=== PATIENT | male | born 1960 | race Caucasian/White ===

== ENCOUNTER 2019-02-03 18:43 | Emergency (ER) | payer OTHER ==
--- NOTE | 2019-02-03 19:18 | ED ---
General Adult HPI - General Source: patient, RN notes reviewed, old records reviewed Mode of arrival: ambulatory Limitations: no limitations <Serafin Soliz - Last Filed: 02/03/19 20:36> <Kathy Abrams - Last Filed: 02/06/19 02:56> - General Chief complaint: Extremity Problem,Nontraumatic Stated complaint: Poss Blood Clot Time Seen by Provider: 02/03/19 18:54 - History of Present Illness Initial comments: 58-year-old male patient past medical history of varicose veins and lower extremities bilaterally presents ED with chief complaint of pain in right lateral calf. Patient reports that he has a varicose vein which has been present in this region for years. Patient force that he did have one of his large veins stented in order to treat the varicosities approximately 12/27. Patient is on Plavix. However approximately 2 weeks ago patient had a long travel lying from [place] since then he feels as if the area has become hard and painful. Patient also reports some warmth in his right lower extremity. Patient denies any chest pain or shortness of breath. Patient denies any other complaints at this time. Systemic: Pt denies fatigue, fever/chills, rash. Pt denies weakness, night sweats, weight loss. Neuro: Pt denies headache, visual disturbances, syncope or pre-syncope. HEENT: Pt denies ocular discharge or irritation, otalgia, rhinorrhea, pharyngitis or notable lymphadenopathy. Cardiopulmonary: Pt denies chest pain, SOB, heart palpitations, dyspnea on exertion. Abdominal/GI: Pt denies abdominal pain, n/v/d. : Pt denies dysuria, burning w/ urination, frequency/urgency. Denies new onset urinary or bowel incontinence. MSK: Pt denies myalgia, loss of strength or function in extremities. Neuro: Pt denies new onset weakness, paresthesias. (Serafin Soliz) - Related Data Home Medications Medication Instructions Recorded Confirmed No Known Home Medications 11/07/13 11/07/13 Allergies Allergy/AdvReac Type Severity Reaction Status Date / Time No Known Allergies Allergy Verified 02/03/19 18:51 Review of Systems ROS Other: All systems not noted in ROS Statement are negative. <Serafin Soliz - Last Filed: 02/03/19 20:36> ROS Other: All systems not noted in ROS Statement are negative. <Kathy Abrams - Last Filed: 02/06/19 02:56> ROS Statement: Those systems with pertinent positive or pertinent negative responses have been documented in the HPI. Past Medical History Past Medical History: No Reported History History of Any Multi-Drug Resistant Organisms: None Reported Past Surgical History: Appendectomy Past Anesthesia/Blood Transfusion Reactions: No Reported Reaction Smoking Status: Never smoker <Serafin Soliz - Last Filed: 02/03/19 20:36> General Exam Limitations: no limitations <Serafin Soliz - Last Filed: 02/03/19 20:36> - General Exam Comments Initial Comments: Constitutional: NAD, AOX3, Pt has pleasant affect. HEENT: NC/AT, trachea midline, neck supple, no lymphadenopathy. Posterior pharynx non erythematous, without exudates. External ears appear normal, without discharge. Mucous membranes moist. Eyes PERRLA, EOM intact. There is no scleral icterus. No pallor noted. Cardiopulmonary: RRR, no murmurs, rubs or gallops, no JVD noted. Lungs CTAB in anterior and posterior gonzalez. No peripheral edema. Abdominal exam: Abdomen soft and non-distended. Abdomen non-tender to palpation in all 4 quadrants. Bowel sounds active in LLQ. No hepatosplenomegaly. No ecchymosis Neuro: CN II-XII grossly intact. No nuchal rigidity. No raccon eyes, no kathleen sign, no hemotympanum. No cervical spinal tenderness. MSK: Varicose vein on right lower extremity medial aspect of calf mildly hard palpation, mildly tender to palpation, mild amount of warmth, no erythema or skin changes. Distal pulses intact and equal bilaterally. No posterior calf tenderness bilaterally, homans sign negative bilaterally. Posterior tibialis and radial pulse +2 bilaterally. Sensation intact in upper and lower extremities. Full active ROM in upper and lower extremities, 5/5 stregnth. (Serafin Soliz) Course Vital Signs 02/03/19 02/03/19 18:48 20:45 Temperature 98.3 F 98.2 F Pulse Rate 86 78 Respiratory 16 18 Rate Blood Pressure 136/90 130/88 O2 Sat by Pulse 98 97 Oximetry Medical Decision Making <Serafin Soliz - Last Filed: 02/03/19 20:36> <Kathy Abrams - Last Filed: 02/06/19 02:56> - Medical Decision Making 58-year-old male patient presents to ED with chief complaint of pain in her grossly in right lower extremity. Patient vital signs stable, afebrile. Physical exam displayed: aricose vein on right lower extremity medial aspect of calf mildly hard palpation, mildly tender to palpation, mild amount of warmth, no erythema or skin changes. Distal pulses intact and equal bilaterally. No posterior calf tenderness bilaterally, homans sign negative bilaterally. Bill Collector ior tibialis and radial pulse +2 bilaterally. Sensation intact in upper and lower extremities. Full active ROM in upper and lower extremities, 5/5 stregnth. Ultrasound of right lower extremity displayed superficial venous thrombosis at area of concern. No DVT. Patient will be discharged, will use warm compresses, nonsteroidal anti-inflammatories. He'll follow up with primary care provider in persist abscess initiated. Case discussed with Dr. Abrams. (Serafin Soliz) I was available for consultation in the emergency department. The history and physical exam were done by the midlevel provider. I was consulted for this patient's care. I reviewed the case midlevel provider and based on their presentation of the patient, I agree with the assessment, medical decision making and plan of care as documented. Chart was dictated using Trendrating software. Attempts were made to correct any dictation errors however some typographical errors may persist. (Kathy Abrams) Disposition Is patient prescribed a controlled substance at d/c from ED?: No <Serafin Soliz - Last Filed: 02/03/19 20:36> <Kathy Abrams - Last Filed: 02/06/19 02:56> Clinical Impression: Superficial thrombophlebitis of right leg Disposition: HOME SELF-CARE Condition: Stable Instructions (If sedation given, give patient instructions): Warm Compress or Soak (ED) Additional Instructions: Patient to adhere to previously discussed treatment plan and will take medication(s) as directed. Patient to follow up with PCP in 1-2 days. Patient to return to ED if symptoms do not improve. Use warm compress, ibuprofen as directed. Follow up with primary care provider previously established vascular. Return to ER if condition worsens. Referrals: Marcelo Hoyos MD [Primary Care Provider] - 1-2 days
[2019-02-03 20:46] VITALS: BP 130/88; PULSE 78; RESP 18; TEMP 98.2
--- NOTE | 2019-02-03 21:51 | US ---
EXAMINATION TYPE: US venous doppler duplex LE RT DATE OF EXAM: 02/03/2019 7:52 PM COMPARISON: NONE CLINICAL HISTORY: Pain. Right medial calf area of pain and swelling SIDE PERFORMED: Right TECHNIQUE: The lower extremity deep venous system is examined utilizing real time linear array sonog lavon with graded compression, doppler sonography and color-flow sonography. VESSELS IMAGED: External Iliac Vein (EIV) Common Femoral Vein Deep Femoral Vein Greater Saphenous Vein * Femoral Vein Popliteal Vein Small Saphenous Vein * Proximal Calf Veins (* superficial vessels) There are noncompressible superficial veins. IMPRESSION: There is normal flow, compressibility, vascular waveforms of the deep venous system. The re is however a superficial venous thrombosis associated with the area of palpable concern.
== END 2019-02-03 20:46 | disposition home or self-care (01) ==
LOC: EC 18:43
DX: I80.01 Phlebitis and thrombophlebitis of superficial vessels of right lower extremity (principal)
CPT/HCPCS: 99284

== ENCOUNTER 2019-03-28 09:32 | Day surgery (SDC) | payer OTHER ==
[2019-03-27 08:34] VITALS: BMI 24.3
[~2019-03-28 09:32] MED LIST: LACTATED RINGERS 1,000 ML IV SCH; LIDOCAINE 1% 20 ML VIAL (10MG/ML) FOR IV START INTRADERMA PRN
[2019-03-28 10:19] VITALS: TEMP 98.1
[2019-03-28] MEDS ORDERED: LIDOCAINE 1% INJ 10MG/ML (20 ML MDV) ONE (10:57)
[2019-03-28] MEDS ORDERED: PROPOFOL 10 MG/ML 20 ML VIAL IV ONE (10:57)
--- NOTE | 2019-03-28 11:20 | P.PCN ---
Date of Procedure: 03/28/19 Procedure(s) Performed: BRIEF HISTORY: Patient is a 58-year-old pleasant white male scheduled for an elective colonoscopy as a part of surveillance of prior history of colon polyps. Last colonoscopy was 5 years ago. PROCEDURE PERFORMED: Colonoscopy with biopsy. PREOPERATIVE DIAGNOSIS: History of colon polyps. IV sedation per Anesthesia. PROCEDURE: After informed consent was obtained, the patient, was brought into the endoscopy unit. IV sedation was administered by Anesthesia under continuous monitoring. Digital rectal examination was normal. Initially the Olympus CF-160 flexible video colonoscope was then inserted in the rectum, gradually advanced into the cecum without any difficulty. Careful examination was performed as the scope was gradually being withdrawn. Ileocecal valve and the appendiceal orifice were visualized and appeared normal. Prep was excellent. Mucosa of the cecum, ascending colon, transverse colon, appeared normal. In the descending colon there was a 3 mm polyp that was removed by cold biopsy. Rest of the descending colon, sigmoid colon, and rectum appeared normal. Retroflexion was performed in the rectum and no lesions were seen. The patient tolerated the procedure well. IMPRESSION: 2-3 mm descending colon polyp status post removal by cold biopsy Rest of the colon appeared normal RECOMMENDATIONS: Findings of this examination were discussed with the patient as well as a family. He was advised to follow with the biopsy result. If the biopsy shows an adenoma, he can have a repeat colonoscopy in 5 years.
[2019-03-28 11:25] VITALS: BP 105/67; PULSE 74; RESP 18
== END 2019-03-28 12:08 | disposition home or self-care (01) ==
LOC: ORWHC2ENDO 09:32
PROVIDERS: ATTEND Internal Medicine Gastroenterology
DX: Z12.11 Encounter for screening for malignant neoplasm of colon (principal); D12.4 Benign neoplasm of descending colon; Z86.010 Personal history of colon polyps; Z79.02 Long term (current) use of antithrombotics/antiplatelets; Z79.899 Other long term (current) drug therapy; Z90.49 Acquired absence of other specified parts of digestive tract; Z95.828 Presence of other vascular implants and grafts
CPT/HCPCS: 88305; 45380; J2001; J2704

== ENCOUNTER → 2019-12-12 | Outpatient (CLI) | payer OTHER ==
--- NOTE | 2019-12-12 08:36 | US ---
EXAMINATION TYPE: US liver DATE OF EXAM: 12/12/2019 COMPARISON: CLINICAL HISTORY: K76.0 Fatty liver. abn labs, no pain EXAM MEASUREMENTS: Liver Length: 14.9 cm Gallbladder Wall: 0.1 cm CBD: 0.5 cm Right Kidney: 10.3 x 5.0 x 5.9 cm Pancreas: Tail obscured by overlying bowel gas, appears echogenic Liver: wnl Gallbladder: No stones seen Evidence for sonographic Gill's sign: neg CBD: wnl Right Kidney: No hydronephrosis or masses seen IMPRESSION: There is some limitation to the exam. No abnormalities evident.
== END | disposition home or self-care (01) ==
LOC: RADUSWWP 07:05
PROVIDERS: ATTEND Internal Medicine
DX: K76.0 Fatty (change of) liver, not elsewhere classified (principal)
CPT/HCPCS: 76705

== ENCOUNTER → 2021-07-23 | Outpatient (CLI) | payer OTHER ==
--- NOTE | 2021-07-24 09:50 | CT ---
EXAMINATION TYPE: CT heart w calcium score DATE OF EXAM: 07/23/2021 COMPARISON: None HISTORY: Screening for cardiovascular disorder. 213.9 CT DLP: 64 mGycm Automated exposure control for dose reduction was used. CT CALCIUM SCORING Coronary calcium is a marker for plaque (fatty deposits) in a blood vessel or atherosclerosis (harden ing of the arteries). The presence and amount of calcium detected in a coronary artery by the CT sca n, indicates the presence and amount of atherosclerotic plaque. These calcium deposits appear years before the development of heart disease symptoms such as chest pain and shortness of breath. A calcium score is computed for each of the coronary arteries based upon the volume and density of th e calcium deposits. This can be referred to as your calcified plaque burden. It does not correspond directly to the percentage of narrowing in the artery but does correlate with the severity of the un derlying coronary atherosclerosis. PROCEDURE TECHNIQUE - Prospective Gating was used. Slice thickness: 3mm. Density threshold (HU): 130, Pixel threshold: 3, Algorithm: discrete. RESULTS Region: LM Calcium Score (Agatston): 95.39 Volume (mm3): 86.71 Mass (g): 28.9 Region: RCA Calcium Score (Agatston): 0 Volume (mm3): 0 Mass (g): 0 Region: LAD Calcium Score (Agatston): 143.97 Volume (mm3): 146.59 Mass (g): 48.86 Region: CX Calcium Score (Agatston): 0 Volume (mm3): 0 Mass (g): 0 Region: PDA Calcium Score (Agatston): 0 Volume (mm3): 0 Mass (g): 0 Total: Calcium Score (Agatston): 239.36 Volume (mm3): 233.3 Mass (g): 77.77 TOTAL CALCIUM SCORE: 239.36 There is subsegmental areas of consolidation and cardiomegaly. Aorta measures 4.2 cm in maximal dimen glen. IMPRESSION: 1. Cardiomegaly with coronary atherosclerotic sclerotic disease as noted above. 2. 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 Calcium Score: 239.36 Implication: Definite, at least moderate atherosclerotic plaque highly likely, significant narrowin gs possible CALCIUM SCORE IMPLICATION RISK OF C ORONARY ARTERY DISEASE 0 No identifiable plaque Very low, generally less than 5% 1-10 Minimal identifiable plaque Very unlikely, less than 10% 11-100 Definite, at least mild atherosclerotic plaque Mild or m inimal coronary narrowings likely 101-400 Definite, at least moderate atherosclerotic plaque Mild coronary ar harshal disease highly likely, significant narrowing possible 401 or Higher Extensive atherosclerotic plaque High lik elihood of at least one significant coronary narrowing
== END | disposition home or self-care (01) ==
LOC: RADCTMAIN 14:04
PROVIDERS: ATTEND Internal Medicine
DX: Z13.6 Encounter for screening for cardiovascular disorders (principal); I25.10 Atherosclerotic heart disease of native coronary artery without angina pectoris; I71.2 Thoracic aortic aneurysm, without rupture
CPT/HCPCS: 75571

== ENCOUNTER → 2021-08-18 | Outpatient (CLI) | payer OTHER ==
--- NOTE | 2021-08-18 11:17 | NM ---
EXAMINATION TYPE: NM stress cardiolite complete DATE OF EXAM: 08/18/2021 COMPARISON: NONE HISTORY: Chest pain TECHNIQUE: After the intravenous administration of 8.8 mCi Tc 99m Sestamibi - Rest images obtained 4 5 minutes post injection. The patient exercised using a TIN protocol and 1 minute prior to peak e xercise was injected with 25.3 mCi Tc 99m Sestamibi - Stress images obtained 10 minutes post injectio n. FINDINGS: Targeted heart rate was achieved during performance of the study. Review of stress and rest SPECT nii ges demonstrates no distinct perfusion abnormality. Gated analysis shows normal wall motion with an estimated left ventricular ejection fraction of 70 %. IMPRESSION: No scintigraphic evidence for reversible ischemia
--- NOTE | 2021-08-18 18:31 | P.STRESS ---
- Stress Test Note Stress Test Results/Findings: Exam Performed: NM stress cardiolite complete Exam Date: 08/18/21 Reason for Exam: ASCAD Height: 5 ft 11 in Weight: 87.543 kg Protocol: Kris Stage: 4 Duration of Exercise: 10:00 Resting Heart Rate: 67 Resting Blood Pressure: 138/94 Maximum Achieved Heart Rate: 147 Maximum Achieved Blood Pressure: 163/83 85% PMHR: 136 100% PMHR: 160 METS: 11.8 Technologist Comment: Stress Test Results/Findings: Baseline heart rate 67 beats minute, Baseline blood pressure 130/90 [place] and his mercury Baseline EKG shows sinus rhythm normal [place] narrow QRS normal ST segments Patient exercised on a Kris protocol for 10 minutes achieving a peak heart rate of 147 beats a minute Normal blood pressure response to exercise There was no ECG ms for ischemia No arrhythmias were noted @Recovery no abnormalities noted Impression Excellent exercise capacity No ECG evidence for ischemia Nuclear portion will be reported separately
--- NOTE | 2021-08-20 10:10 | EST ---
Stress Test Results/Findings: Exam Performed: NM stress cardiolite complete Exam Date: 08/18/21 Reason for Exam: ASCAD Height: 5 ft 11 in Weight: 87.543 kg Protocol: Kris Stage: 4 Duration of Exercise: 10:00 Resting Heart Rate: 67 Resting Blood Pressure: 138/94 Maximum Achieved Heart Rate: 147 Maximum Achieved Blood Pressure: 163/83 85% PMHR: 136 100% PMHR: 160 METS: 11.8 Technologist Comment: Stress Test Results/Findings: Baseline heart rate 67 beats minute, Baseline blood pressure 130/90 [place] and his mercury Baseline EKG shows sinus rhythm normal [place] narrow QRS normal ST segments Patient exercised on a Kris protocol for 10 minutes achieving a peak heart rate of 147 beats a minute Normal blood pressure response to exercise There was no ECG ms for ischemia No arrhythmias were noted @Recovery no abnormalities noted Impression Excellent exercise capacity No ECG evidence for ischemia Nuclear portion will be reported separately MTDD
== END | disposition home or self-care (01) ==
LOC: RADNMMAIN 08:19
PROVIDERS: ATTEND Internal Medicine
DX: I25.10 Atherosclerotic heart disease of native coronary artery without angina pectoris (principal); R07.9 Chest pain, unspecified
CPT/HCPCS: 93017; 78452; A9500

== ENCOUNTER → 2022-05-03 | Outpatient (CLI) | payer OTHER ==
--- NOTE | 2022-05-03 13:12 | US ---
EXAMINATION TYPE: US carotid duplex BILAT DATE OF EXAM: 05/03/2022 COMPARISON: NONE CLINICAL HISTORY: I65.23 OCCLUSION AND STENOSIS OF BILATERAL CAROTID. TECHNIQUE: Carotid duplex ultrasound examination. Indirect Doppler criteria was utilized. FINDINGS: EXAM MEASUREMENTS: RIGHT: Peak Systolic Velocity (PSV) cm/sec ----- Right CCA: 59.4 ----- Right ICA: 38.6 ----- Right ECA: 57.7 ICA/CCA ratio: 0.65 RIGHT: End Diastole cm/sec ----- Right CCA: 14.7 ----- Right ICA: 13.8 ----- Right ECA: 9.7 LEFT: Peak Systolic Velocity (PSV) cm/sec ----- Left CCA: 71.8 ----- Left ICA: 42.8 ----- Left ECA: 56.8 ICA/CCA ratio: 0.60 LEFT: End Diastole cm/sec ----- Left CCA: 16.1 ----- Left ICA: 14.4 ----- Left ECA: 9.2 VERTEBRALS (direction of flow): Right Vertebral: Antegrade Left Vertebral: Antegrade Rhythm: Normal LATHMAKER NOTES: No significant stenosis seen No significant focal plaque on grayscale images. IMPRESSION: No hemodynamically significant stenosis in either internal carotid artery. Criteria for Assigning % of Stenosis / Diameter reduction (Estimation based on the indirect measurements of the internal carotid artery velocities (ICA PSV). 1. Normal (no stenosis)=ICA PSV < 125 cm/s: ratio < 2.0: ICA EDV<40 cm/s. 2. Less than 50% stenosis=ICA PSV < 125 cm/s: ratio < 2.0: ICA EDV<40 cm/s. 3. 50 to 69% stenosis=ICA PSV of 125 to 230 cm/s: ration 2.0 ? 4.0: ICA EDV 40-100 cm/s. 4. Greater than 70% stenosis to near occlusion= ICA PSV > 230 cm/s: ratio > 4.0: ICA EDV > 100 cm/s. 5. Near occlusion= ICA PSV velocities may be low or undetectable: variable ratio and ICA EDV. 6. Total occlusion=unable to detect flow.
== END | disposition home or self-care (01) ==
LOC: RADUSWWP 10:32
PROVIDERS: ATTEND Internal Medicine
DX: I65.23 Occlusion and stenosis of bilateral carotid arteries (principal)
CPT/HCPCS: 93880

== ENCOUNTER → 2023-10-18 | Outpatient (CLI) | payer OTHER ==
--- NOTE | 2023-10-20 09:59 | US ---
EXAMINATION TYPE: US liver DATE OF EXAM: 10/18/2023 COMPARISON: 12/12/2019 CLINICAL INDICATION: Male, 63 years old with history of E80.7 DISORDER OF BILIRUBIN METABOLISM, UNSPE CIFIE; Abnormal labs; Patient denies any other signs or symptoms at this time TECHNIQUE: Multiple sonographic images of the right upper quadrant are obtained. FINDINGS: EXAM MEASUREMENTS: Liver Length: 14.5 cm Gallbladder Wall: 0.2 cm CBD: 0.3 cm Right Kidney: 11.2 x 6.4 x 6.3 cm ORTHOTIC PRACTITIONER NOTES:Difficult exam due to overlying bowel gas and rib shadowing Pancreas: wnl Liver: wnl Gallbladder: ? Debris seen with change in patient position Evidence for sonographic Gill's sign: No CBD: wnl Right Kidney: wnl IMPRESSION: Gallbladder debris. Otherwise unremarkable study.
== END | disposition home or self-care (01) ==
LOC: RADUSWWP 08:27
PROVIDERS: ATTEND Internal Medicine
DX: E80.7 Disorder of bilirubin metabolism, unspecified (principal); K82.8 Other specified diseases of gallbladder
CPT/HCPCS: 76705

== ENCOUNTER → 2024-03-14 | Outpatient (CLI) | payer OTHER ==
--- NOTE | 2024-03-14 16:21 | US ---
EXAMINATION TYPE: US carotid duplex BILAT DATE OF EXAM: 03/14/2024 COMPARISON: 05/03/2022. CLINICAL INDICATION: Male, 63 years old with history of I6523 CAROTID STENOSIS BILATER; Patient state s he gets dizzy. No HTN. TECHNIQUE: Grayscale, color Doppler and spectral Doppler evaluation of the bilateral carotid systems and vertebral arteries.Indirect Doppler criteria was utilized. FINDINGS: EXAM MEASUREMENTS: RIGHT: Peak Systolic Velocity (PSV) cm/sec ----- Right CCA: 82.0 ----- Right ICA: 61.9 ----- Right ECA: 120.5 ICA/CCA ratio: 0.8 RIGHT: End Diastole cm/sec ----- Right CCA: 22.6 ----- Right ICA: 36.6 ----- Right ECA: 30.0 LEFT: Peak Systolic Velocity (PSV) cm/sec ----- Left CCA: 78.2 ----- Left ICA: 65.3 ----- Left ECA: 76.8 ICA/CCA ratio: 0.8 LEFT: End Diastole cm/sec ----- Left CCA: 20.6 ----- Left ICA: 22.6 ----- Left ECA: 15.3 VERTEBRALS (direction of flow): Right Vertebral: Antegrade Left Vertebral: Antegrade Rhythm: Normal LITHOGRAPHIC PRESS OPERATOR NOTES: No plaque or wall thickening. No elevated velocities. IMPRESSION: Right: Less than 50% stenosis of the carotid bifurcation. Normal (no stenosis)=ICA PSV < 125 cm/s: ra glo < 2.0: ICA EDV<40 cm/s. Left: Less than 50% stenosis of the carotid bifurcation. Normal (no stenosis)=ICA PSV < 125 cm/s: rat io < 2.0: ICA EDV<40 cm/s. Criteria for Assigning % of Stenosis / Diameter reduction (Estimation based on the indirect measurements of the internal carotid artery velocities (ICA PSV). 1. Normal (no stenosis)=ICA PSV < 125 cm/s: ratio < 2.0: ICA EDV<40 cm/s. 2. Less than 50% stenosis=ICA PSV < 125 cm/s: ratio < 2.0: ICA EDV<40 cm/s. 3. 50 to 69% stenosis=ICA PSV of 125 to 230 cm/s: ration 2.0 ? 4.0: ICA EDV 40-100 cm/s. 4. Greater than 70% stenosis to near occlusion= ICA PSV > 230 cm/s: ratio > 4.0: ICA EDV > 100 cm/s. 5. Near occlusion= ICA PSV velocities may be low or undetectable: variable ratio and ICA EDV. 6. Total occlusion=unable to detect flow. [facility], , 03/14/2024 4:19 PM
--- NOTE | 2024-03-15 07:02 | CA ---
Transthoracic Echo Report Name: Gino Phillips Age: 63 Gender: M : 1960 Exam Date: 03/14/2024 15:12 Exam Location: [facility] Ht (in): 71 Wt (lb): 195 Ordering Physician: Marcelo Hoyos MD Attending/Referring Phys: Marcelo Hoyos MD Reference Assistant Marilyn Gray RDCS Procedure CPT: Indications: I25.10 Athscl heart disease Cardiac Hx: Technical Quality: Fair Contrast 1: Total Dose (mL): Contrast 2: Total Dose (mL): MEASUREMENTS (Male / Female) Normal Values 2D ECHO LV Diastolic Diameter PLAX 4.5 cm 4.2 - 5.9 / 3.9 - 5.3 cm LV Systolic Diameter PLAX 2.7 cm IVS Diastolic Thickness 1.2 cm 0.6 - 1.0 / 0.6 - 0.9 cm LVPW Diastolic Thickness 1.4 cm 0.6 - 1.0 / 0.6 - 0.9 cm LV Relative Wall Thickness 0.6 RV Internal Dim ED PLAX 2.9 cm LA Volume 50.9 cm??? 18 - 58 / 22 - 52 cm??? LA Volume Index 24.0 cm???/m??? 16 - 28 cm???/m??? M-MODE Aortic Root Diameter MM 2.9 cm LA Systolic Diameter MM 4.9 cm LA Ao Ratio MM 1.7 AV Cusp Separation MM 1.6 cm DOPPLER AV Peak Velocity 111.3 cm/s AV Peak Gradient 5.0 mmHg AV Mean Velocity 75.0 cm/s AV Mean Gradient 2.6 mmHg AV Velocity Time Integral 20.6 cm AI Peak Velocity 328.7 cm/s AI Peak Gradient 43.2 mmHg AI Pressure Half Time 518.5 ms LVOT Peak Velocity 89.0 cm/s LVOT Peak Gradient 3.2 mmHg LVOT Velocity Time Integral 18.1 cm MV Area PHT 2.9 cm??? Mitral E Point Velocity 52.1 cm/s Mitral A Point Velocity 93.4 cm/s Mitral E to A Ratio 0.6 MV Deceleration Time 265.2 ms MV E' Velocity 5.5 cm/s Mitral E to MV E' Ratio 9.6 TR Peak Velocity 182.9 cm/s TR Peak Gradient 13.4 mmHg Right Ventricular Systolic Press 18.4 mmHg FINDINGS Left Ventricle Mildly increased left ventricular wall thickness. Left ventricular cavity size normal. Normal left ventricular systolic function with no obvious regional wall motion abnormalities. Left ventricular ejection fraction is estimated at 55-60 %. Right Ventricle Normal right ventricular size and function. Right ventricular systolic pressure within normal limits. Right Atrium Normal right atrial size. Left Atrium Normal left atrial size. Mitral Valve Structurally normal mitral valve. Mild mitral regurgitation. Aortic Valve Trileaflet aortic valve. No aortic stenosis. Mild aortic regurgitation. Tricuspid Valve Structurally normal tricuspid valve. Mild tricuspid regurgitation. Pulmonic Valve Structurally normal pulmonic valve.trace pulmonic regurgitation. Pericardium No pericardial effusion. Aorta Normal size aortic root and proximal ascending aorta. CONCLUSIONS 1. Normal left ventricular size and systolic function 2. Moderate mitral, aortic and tricuspid regurgitation. Previewed by: Dr. Ritu Willoughby MD (Electronically Signed) Final Date: 15 March 2024 07:01
== END | disposition home or self-care (01) ==
LOC: RADECHMAIN 15:04
PROVIDERS: ATTEND Internal Medicine
DX: I25.10 Atherosclerotic heart disease of native coronary artery without angina pectoris
CPT/HCPCS: 93306; 93880

== ENCOUNTER 2024-03-20 06:49 | Day surgery (SDC) | payer OTHER ==
[~2024-03-20 06:49] MED LIST changes: -LIDOCAINE 1% 20 ML VIAL (10MG/ML) FOR IV START INTRADERMA PRN
[2024-03-20 07:14] VITALS: TEMP 97.4
[2024-03-20] MEDS: IV FLUID CONTINUATION 1,000 ML IV ONE ×2 (07:19→07:52)
[2024-03-20] MEDS ORDERED: PROPOFOL 10 MG/ML 20 ML VIAL IV ONE (07:53)
--- NOTE | 2024-03-20 08:21 | P.PCN ---
Date of Procedure: 03/20/24 Procedure(s) Performed: BRIEF HISTORY: Patient is a 63-year-old pleasant white male scheduled for an elective colonoscopy as a part of evaluation by history of colon polyps. Last colonoscopy was 5 years ago and was noted to have tubular adenoma. PROCEDURE PERFORMED: Colonoscopy with snare polypectomy PREOPERATIVE DIAGNOSIS: History of colon polyps. IV sedation per Anesthesia. PROCEDURE: After informed consent was obtained, the patient, was brought into the endoscopy unit. IV sedation was administered by Anesthesia under continuous monitoring. Digital rectal examination was normal. Initially the Olympus CF-160 flexible video colonoscope was then inserted in the rectum, gradually advanced into the cecum without any difficulty. Careful examination was performed as the scope was gradually being withdrawn. Ileocecal valve and the appendiceal orifice were visualized and appeared normal. Prep was excellent. Mucosa of the cecum, normal. Descending colon there was a 3 mm sessile polyp that was removed by cold snare polypectomy. Rest of the ascending colon, transverse colon, descending colon, sigmoid colon, and rectum appeared normal. Retroflexion was performed in the rectum and no lesions were seen. The patient tolerated the procedure well. IMPRESSION: 3 mm ascending colon polyp status post cold snare polypectomy Rest of the colon appeared normal RECOMMENDATIONS: Findings of this examination were discussed with the patient as well as his family. He was advised to follow-up with the biopsy results and have repeat colonoscopy in 7 to 10 years..
[2024-03-20 08:50] VITALS: BP 125/78; PULSE 73; RESP 18
== END 2024-03-20 09:14 | disposition home or self-care (01) ==
LOC: ORWHC2ENDO 06:49
PROVIDERS: ATTEND Internal Medicine Gastroenterology
CPT/HCPCS: 45385; 88305

== ENCOUNTER → 2024-04-11 | Outpatient (CLI) | payer OTHER ==
--- NOTE | 2024-04-11 11:29 | CA ---
Exercise Stress Test Report Name: Gino Phillips Exam Date: 04/11/2024 09:52 Exam Location: [place] Stress Ht (in): 71 Wt (lb): 197 BSA: 2.10 Ordering Phys: Marcelo Hoyos MD Referring Phys: Marcelo Hoyos MD Technologist: Giovanni Cifuentes Age: 63 Gender: M : 1960 Procedure CPT: Indications: I25.10 ATHSCL HEART DISEASE OF [id number] ICD-10 Codes: Patient History: Medications: SEE LIST Meds past 24 hrs: Pretest Chest Pain: STRESS TEST Protocol Exercise Duration (min:sec): 09:[address] Depressions (mm): Angina Score: Charles Score: Resting HR (bpm): 79 Peak HR (bpm): 142 Resting BP (mmHg): 145 / 101 Peak BP (mmHg): 146 / 73 MPHR: 157 Target HR: 133 % MPHR: 90 METS: 10.3 Total Dose: Peak Dose: Atropine: Double Product: 52649 BP Response: Stress Termination: Reached target heart rate Stress Symptoms: SHORT OF BREATH Stress Summary: ECG ANALYSIS Resting ECG: Normal sinus rhythm normal axis normal intervals Stress ECG: Patient exercised on Kris protocol for 9 minutes and 40 seconds achieving 11 mets 85% of predicted maximal heart rate without chest pain at peak exercise there was [address] segment depression noted in inferolateral leads CONCLUSIONS Excellent exercise tolerance Abnormal stress test by EKG criteria Dr. Marcio Herrera MD (Electronically Signed) Final Date: 11 April 2024 11:28
--- NOTE | 2024-04-11 11:45 | NM ---
EXAMINATION TYPE: NM stress cardiolite complete DATE OF EXAM: 04/11/2024 COMPARISON: NONE CLINICAL INDICATION: Male, 63 years old with history of I25.10 ATHSCL HEART DISEASE OF [place] 65.23; TECHNIQUE: After the intravenous administration of 7.6 mCi Tc 99m Sestamibi - Rest images obtained 4 5 minutes post injection. The patient exercised using a TIN protocol and 1 minute prior to peak e xercise was injected with 26.0 mCi Tc 99m Sestamibi - Stress images obtained 25 minutes post injectio n. FINDINGS: Targeted heart rate was achieved during performance of the study. Review of stress and rest SPECT nii ges demonstrates no distinct perfusion abnormality. Gated analysis shows normal wall motion with an estimated left ventricular ejection fraction of 56 %. IMPRESSION: No scintigraphic evidence for reversible ischemia [facility], , 04/11/2024 11:43 AM
== END | disposition home or self-care (01) ==
LOC: RADNMMAIN 08:21
PROVIDERS: ATTEND Internal Medicine
DX: I25.10 Atherosclerotic heart disease of native coronary artery without angina pectoris (principal); I65.23 Occlusion and stenosis of bilateral carotid arteries; R94.39 Abnormal result of other cardiovascular function study
CPT/HCPCS: 93017; 78452; A9500

== ENCOUNTER → 2024-05-08 | Outpatient (CLI) | payer OTHER ==
--- NOTE | 2024-05-08 08:52 | US ---
EXAMINATION TYPE: US abdomen complete DATE OF EXAM: 05/08/2024 COMPARISON: 10/18/2023 12/12/2019 CLINICAL INDICATION: Male, 63 years old with history of R17 ELEV BILIRUBIN; Patient denies any other signs, symptoms, or relevant history TECHNIQUE: Grayscale and color Doppler imaging of the abdomen was performed. FINDINGS: EXAM MEASUREMENTS: Liver Length: 15.8 cm Gallbladder Wall: 0.2 cm CBD: 0.2 cm, color Doppler imaging was utilized to isolate the common bile duct for measurement. Spleen: 10.1 cm Right Kidney: 9.5 x 5.8 x 5.6 cm Left Kidney: 10.6 x 5.9 x 5.4 cm BAKER APPRENTICE NOTES: Pancreas: wnl Liver: wnl ; obscured by gas in supine Gallbladder: wnl Evidence for sonographic Gill's sign: No CBD: wnl Spleen: wnl Right Kidney: wnl Left Kidney: wnl Upper IVC: wnl Abd Aorta: wnl The visualized portions of liver are homogeneous without focal lesion. There is some limited evaluati on due to overlying bowel gas. Noncirrhotic morphology. The intrahepatic portion of the IVC and proxi mal abdominal aorta are within normal limits. There is no evidence of cholelithiasis. Common bile d uct is unremarkable. The visualized portions of the pancreas are homogenous. The spleen is unremark able. Kidneys are symmetric and free of hydronephrosis. No renal lesions are seen. IMPRESSION: No ultrasound evidence for an acute process. [facility], , 05/08/2024 8:49 AM
== END | disposition home or self-care (01) ==
LOC: RADUSWWP 08:23
PROVIDERS: ATTEND Internal Medicine
DX: R17 Unspecified jaundice (principal)
CPT/HCPCS: 76700